=== PATIENT | female | born 1990 | race Caucasian/White ===

== ENCOUNTER 2017-05-13 07:51 | Day surgery (SDC) | payer OTHER ==
[~2017-05-13] VITALS: Ht 154.9 cm; Wt 90.5 kg
[~2017-05-13 07:51] MED LIST: CORTISONE; HYDACE5 PO; IBUP400 PO; LANACANE; MULVITMINE PO; ORTHO-CYCLEN 21 EACH; PREPARATION H
== END 2017-05-13 11:40 | disposition home or self-care (01) ==
LOC: ORSCSDS 07:51
PROVIDERS: Obstetrics & Gynecology
PROC: 0UBC7ZX Excision of Cervix, Via Natural or Artificial Opening, Diagnostic (ICD-10-PCS; principal; 2017-05-13 09:30)
DX: D06.9 Carcinoma in situ of cervix, unspecified (principal)
CPT/HCPCS: 88307; J0171; J1100; J1580; J1885; J2250; J2405; J3010; J7120

== ENCOUNTER → 2018-06-21 | Outpatient (CLI) | payer OTHER ==
[2018-06-25 04:11] LABS: CHLAMYDIA TRACHOMATIS, NAA Negative (Negative); HPV 16 Negative (Negative); HPV 18 Negative (Negative); HPV OTHER HR TYPES Negative (Negative); NEISSERIA GONORRHOEAE, NAA Negative (Negative)
== END | disposition home or self-care (01) ==
LOC: LAB 15:30 → LAB SHORT 15:30
PROVIDERS: Obstetrics & Gynecology
DX: Z36.89 Encounter for other specified antenatal screening (principal)
CPT/HCPCS: 87491; 87591; 87624; G0123

== ENCOUNTER → 2018-12-21 | Outpatient (CLI) | payer OTHER ==
[~2018-12-21] MED LIST changes: +IBUP600 PO; +PRENATAL TABLE1 EAC2 PO; +Percocet 5-3251 EACH PO
[2018-12-21 15:46] LABS: Bilirubin, Urine Neg (Neg); Blood, Urine Neg (Neg); Glucose Qualitative, Urine Neg (Neg); Ketones, Urine 1+ (Neg); Leukocyte Esterase, Urine 1+ (Neg); Nitrite, Urine Pos (Neg); Protein, Urine Neg (Neg); Urobilinogen, Urine NORM (Normal)
[2018-12-21 16:07] LABS: Appearance, Urine Clear (Clear); Color, Urine Yellow (P-Yellow)
[2018-12-21 16:18] LABS: Red Blood Cells, Urine 0-2 /hpf (0-2); Squamous Epithelial Cells Few /hpf (Few)
[2018-12-21 16:19] LABS: Bacteria Few /hpf; Calcium Oxalate Crystals Many /hpf
== END ==
LOC: LAB 15:17 → LAB SHORT 15:17
PROVIDERS: Obstetrics & Gynecology
DX: O99.89 Other specified diseases and conditions complicating pregnancy, childbirth and the puerperium (principal); R82.998 Other abnormal findings in urine
CPT/HCPCS: 81001; 87081; 87086; 87653

== ENCOUNTER 2019-01-12 06:01 | Inpatient (IN) | payer OTHER ==
[2019-01-11 09:27] LABS: BASOPHILS ABSOLUTE AUTO 0.04 K/mm3 (0.00-0.23); BASOPHILS PERCENT AUTO 1 % (0-2); EOSINOPHILS ABSOLUTE AUTO 0.06 K/mm3 (0.00-0.68); EOSINOPHILS PERCENT AUTO 1 % (0-6); Hematocrit 37.4 % (33.0-51.0); Hemoglobin 12.2 g/dL (11.5-16.0); IMMATURE GRAN ABSOLUTE AUTO 0.04 K/mm3 (0.00-0.10); IMMATURE GRAN PERCENT AUTO 1 % (0-1); LYMPHOCYTES ABSOLUTE AUTO 1.66 K/mm3 (0.84-5.20); LYMPHOCYTES PERCENT AUTO 20 % (21-46); MONOCYTES ABSOLUTE AUTO 0.49 K/mm3 (0.16-1.47); MONOCYTES PERCENT AUTO 6 % (4-13); Mean Corpuscular HGB Conc 32.6 g/dL (31.5-36.5); Mean Corpuscular Volume 92 fL (80-100); Mean Platelet Volume 12.3 fL (9.1-12.4); NEUTROPHILS ABSOLUTE AUTO 6.21 K/mm3 (1.96-9.15); NEUTROPHILS PERCENT AUTO 73 % (41-73); Platelet Count 136 K/mm3 (150-400); RDW Coefficient Variation 15.8 % (11.7-14.2); Red Blood Cell Count 4.06 M/mm3 (3.80-5.20)
[~2019-01-12] VITALS: Ht 152.4 cm; Wt 97.5 kg
[~2019-01-12 06:01] MED LIST changes: -IBUP600 PO; -Percocet 5-3251 EACH PO
[2019-01-12 08:35] LABS: PCO2 Cord - Arterial 101 mmHg (40-50); pH Cord - Arterial 6.98 (7.28-7.35)
[2019-01-12 08:38] LABS: PCO2 Cord - Venous 81.3 mmHg (40-50); pH Umbilical Cord - Venous 7.08 (7.26-7.35)
--- NOTE | 2019-01-12 08:44 | NUR ---
01/12/19 0844 Ileana Anglin VIABLE FEMALE BORN AT 0815, ATTEMPT VAC ASSIST X3 WITH 3 POP OFFS. KATIA LEW WEIGHED 7#9 OZ, [id number]. 3/8.
[2019-01-13 05:59] LABS: Hematocrit 31.8 % (33.0-51.0); Hemoglobin 10.3 g/dL (11.5-16.0); Mean Corpuscular HGB 29.5 pg (26.0-34.0); Mean Corpuscular HGB Conc 32.4 g/dL (31.5-36.5); Mean Corpuscular Volume 91 fL (80-100); Mean Platelet Volume 12.4 fL (9.1-12.4); Platelet Count 142 K/mm3 (150-400); RDW Coefficient Variation 16.2 % (11.7-14.2); RDW Standard Deviation 53.4 fL (35.1-46.3); Red Blood Cell Count 3.49 M/mm3 (3.80-5.20); White Blood Cell Count 11.34 K/mm3 (4.00-11.30)
--- NOTE | 2019-01-13 13:27 | NUR ---
CONSULT. SHE HAS BEEN ABLE TO SELF LATCH BABY ON LEFT SIDE, BUT NOT RIGHT, USING SHIELD ON RIGHT. RIGHT NIPPLE EDEMATOUS, FIRM FROM NIPPLE TO HALF OF [place]. UNABLE TO EXPRESS DROP OF COLOSTRUM. BABY SUCKING VIGOROUSLY ON PACIFIER, ROOTS, BUT GETS ANGRY AND DOES NOT WANT TO DIRECT LATCH OR USE SHIELD. FINALLY BEGAN SUCKLING ON SHIELD AFTER ABOUT 5 MINUTES OF FUSSING. INSTERMITTENT GOOD SUCKLING. NO FLUID NOTED INSIDE SHIELD WHEN SHE RELEASED. INSTRUCT IN CHANGES TO EXPECT WITH BABY AND WITH FEEDINGS DURING THE FIRST WEEK, THAT SOME PUMPING MAY HELP WITH RIGHT NIPPLE AND STIMULATION TO HELP RELEASE MILK EASIER, AND TO PUT BABY TO BREAST OFTEN AND LIMIT PACIFIER USE TO MINIMAL UNTIL BABY IS ABLE TO LATCH AND SUCKLE WELL. QUESTIONS ANSWERED.
--- NOTE | 2019-01-13 19:22 | NUR ---
REPORT TO RUDI PEPE
--- NOTE | 2019-01-13 22:10 | NUR ---
REPORT TO RUDI JENSEN
[2019-01-14] MEDS ORDERED: Percocet 5-3251 EACH PO (11:06)
[2019-01-14] MEDS ORDERED: IBUP600 PO (11:06)
== END 2019-01-14 12:50 | disposition home or self-care (01) | DRG 785 ==
LOC: BC 06:01
PROVIDERS: Obstetrics & Gynecology; ADMIT Obstetrics & Gynecology
PROC: 10D00Z1 Extraction of Products of Conception, Low, Open Approach (ICD-10-PCS; principal; 2019-01-12 07:30)
PROC: 0UT70ZZ Resection of Bilateral Fallopian Tubes, Open Approach (ICD-10-PCS; 2019-01-12 07:30)
DX: O34.211 Maternal care for low transverse scar from previous cesarean delivery (principal); Z3A.38 38 weeks gestation of pregnancy; Z37.0 Single live birth; O99.62 Diseases of the digestive system complicating childbirth; K21.9 Gastro-esophageal reflux disease without esophagitis; O24.429 Gestational diabetes mellitus in childbirth, unspecified control; O99.214 Obesity complicating childbirth; E66.01 Morbid (severe) obesity due to excess calories
CPT/HCPCS: 36415; 82803; 82947; 85025; 85027; 86850; 86900; 86901; 88302; J1885; J2370; J2405; J2590; J2765; J3010; J7120

== ENCOUNTER 2020-02-09 07:20 | Day surgery (SDC) | payer OTHER ==
[~2020-02-09] VITALS: Ht 154.9 cm; Wt 95.5 kg
[~2020-02-09 07:20] MED LIST changes: +IBUP600 PO; +Percocet 5-3251 EACH PO
[2020-02-09] MEDS ORDERED: METO50ER PO (07:55)
--- NOTE | 2020-02-09 08:45 | NUR ---
Ambulatory in Day Surgery History, Chart, Medications and Allergies reviewed before start of procedure. Lungs clear T/O to Auscultation. Patient confirms NPO status and agrees with scheduled surgery. Pre-Op teaching done. Pt verbalizes understanding. Patient States Post-Procedure ride home has been arranged.
--- NOTE | 2020-02-09 13:24 | NUR ---
PT ARRIVED TO THE ROOM FROM PACU AT APPROXIMATELY 1300. PT IS DROWSY BUT ORIENTED. LAP SITES X3 C/D/I. PT COMPLAINED OF MILD NAUSEA. PAIN 5/10 PT REPORTS PAIN IS TOLERABLE.
--- NOTE | 2020-02-09 15:59 | NUR ---
DISCHARGE: PACKET PRINTED AND PT EDUCATED. IV'S DC'D. PT GIVEN PAIN MEDS PRIOR TO SURGERY. LEFT UNIT VIA WHEELCHAIR AT ABOUT 1600
--- NOTE | 2020-02-09 17:21 | NUR ---
REPORT RECIEVED, PT TO ROOM AT ABOUT 1300. UPON ASSESSMENT PT IS A/O, VSS. SURGICAL SITES WNL. PT DENIES N/V, PAIN. PT ABLE TO AMBULATE TO BATHROOM AND VOID. TAKING PO. WILL CTM
== END 2020-02-09 15:50 | disposition home or self-care (01) ==
LOC: ORSCMMR 07:20 → ORD 07:30 → ORSCMMR 09:00 → SURS 13:11 → ORSCMMR 15:50
PROVIDERS: Obstetrics & Gynecology
PROC: 8E0W3CZ Robotic Assisted Procedure of Trunk Region, Percutaneous Approach (ICD-10-PCS; principal; 2020-02-09 09:00)
PROC: 0UT94ZZ Resection of Uterus, Percutaneous Endoscopic Approach (ICD-10-PCS; principal; 2020-02-09 09:00)
DX: N92.0 Excessive and frequent menstruation with regular cycle (principal); N80.3 Endometriosis of pelvic peritoneum; N73.6 Female pelvic peritoneal adhesions (postinfective); I10 Essential (primary) hypertension; E66.01 Morbid (severe) obesity due to excess calories; Z68.39 Body mass index [BMI] 39.0-39.9, adult; Z79.899 Other long term (current) drug therapy
CPT/HCPCS: 58570; S2900; 88307; J1100; J1580; J1885; J2250; J2405; J2704; J3010; J7120

== ENCOUNTER → 2021-09-25 | Outpatient (CLI) | payer OTHER ==
[~2021-09-25] MED LIST changes: +METO50ER PO
[2021-09-25 11:20] LABS: BASOPHILS ABSOLUTE AUTO 0.02 K/mm3 (0.00-0.23); BASOPHILS PERCENT AUTO 0 % (0-2); EOSINOPHILS PERCENT AUTO 0 % (0-6); Hematocrit 40.7 % (33.0-51.0); Hemoglobin 13.9 g/dL (11.5-16.0); IMMATURE GRAN ABSOLUTE AUTO 0.02 K/mm3 (0.00-0.10); IMMATURE GRAN PERCENT AUTO 0 % (0-1); LYMPHOCYTES ABSOLUTE AUTO 3.06 K/mm3 (0.84-5.20); LYMPHOCYTES PERCENT AUTO 29 % (21-46); MONOCYTES ABSOLUTE AUTO 0.53 K/mm3 (0.16-1.47); MONOCYTES PERCENT AUTO 5 % (4-13); Mean Corpuscular HGB 30.4 pg (26.0-34.0); Mean Corpuscular HGB Conc 34.2 g/dL (31.5-36.5); Mean Corpuscular Volume 89 fL (80-100); Mean Platelet Volume 11.3 fL (9.1-12.4); NEUTROPHILS ABSOLUTE AUTO 6.97 K/mm3 (1.96-9.15); NEUTROPHILS PERCENT AUTO 66 % (41-73); Platelet Count 256 K/mm3 (150-400); RDW Coefficient Variation 13.1 % (11.7-14.2); RDW Standard Deviation 42.2 fL (35.1-46.3); Red Blood Cell Count 4.57 M/mm3 (3.80-5.20)
[2021-09-25 11:49] LABS: Bun/Creatinine Ratio 14.1 (12.0-20.0); Calcium, Blood 8.7 mg/dL (8.5-10.1); Creatinine, Blood 0.71 mg/dL (0.40-1.00); Potassium, Blood 4.4 mmol/L (3.5-5.5); Thyroid Stimulating Hormone 1.709 uIU/mL (0.360-4.800)
== END | disposition home or self-care (01) ==
LOC: LAB SHORT 11:01 → LAB 11:01
PROVIDERS: Internal Medicine
DX: L50.1 Idiopathic urticaria (principal)
CPT/HCPCS: 80048; 84443; 85025

== ENCOUNTER 2025-01-27 21:34 | Emergency (ER) | payer OTHER ==
[~2025-01-27] VITALS: Ht 160 cm; Wt 63.5 kg
[2025-01-27 22:05] LABS: BASOPHILS ABSOLUTE AUTO 0.08 K/mm3 (0.00-0.23); BASOPHILS PERCENT AUTO 1 % (0-2); EOSINOPHILS ABSOLUTE AUTO 0.07 K/mm3 (0.00-0.68); EOSINOPHILS PERCENT AUTO 1 % (0-6); Hematocrit 42.8 % (33.0-51.0); Hemoglobin 15.4 g/dL (11.5-16.0); IMMATURE GRAN ABSOLUTE AUTO 0.02 K/mm3 (0.00-0.10); IMMATURE GRAN PERCENT AUTO 0 % (0-1); LYMPHOCYTES ABSOLUTE AUTO 2.49 K/mm3 (0.84-5.20); LYMPHOCYTES PERCENT AUTO 25 % (21-46); MONOCYTES ABSOLUTE AUTO 0.57 K/mm3 (0.16-1.47); MONOCYTES PERCENT AUTO 6 % (4-13); Mean Corpuscular HGB Conc 36.0 g/dL (31.5-36.5); Mean Corpuscular Volume 88 fL (80-100); NEUTROPHILS ABSOLUTE AUTO 6.71 K/mm3 (1.96-9.15); NEUTROPHILS PERCENT AUTO 68 % (41-73); NRBC ABSOLUTE 0.00 K/mm3 (0.00-0.02); NRBC Auto 0.0 /100 WBC (0.0-0.2); Platelet Count 219 K/mm3 (150-400); RDW Coefficient Variation 12.5 % (11.7-14.2); RDW Standard Deviation 39.8 fL (35.1-46.3)
[2025-01-27 22:23] LABS: Alanine Aminotransfer (ALT/SGP 17.0 U/L (12-78); Albumin, Blood 4.4 g/dL (3.4-5.0); Albumin/Globulin Ratio 1.5 (0.8-1.8); Anion Gap 9.0 mmol/L (3-11); Aspartate Aminotrans (AST/SGOT 15.0 U/L (12-37); Bilirubin, Total 0.7 mg/dL (0.1-1.0); Blood Urea Nitrogen 13.0 mg/dL (8-24); CO2, Blood 24.0 mmol/L (21-32); Calcium, Blood 8.9 mg/dL (8.5-10.1); Chloride, Blood 108.0 mmol/L (98-108); Creatinine, Blood 0.7 mg/dL (0.40-1.00); Globulin, Blood 3.0 g/dL (2.2-4.0); Glucose, Blood 89.0 mg/dL (70-99); Potassium, Blood 3.7 mmol/L (3.5-5.5); Sodium, Blood 137.0 mmol/L (136-145); Total Protein, Blood 7.4 g/dL (6.4-8.2)
[2025-01-27 23:00] VITALS: BP 124/93
[2025-01-27] MEDS ORDERED: Ketorolac Tromethamine 15mg Vial IV ONE (23:25)
== END 2025-01-27 23:46 | disposition home or self-care (01) ==
LOC: ER 21:34
PROVIDERS: Student in an Organized Health Care Education/Training Program
DX: S20.219A Contusion of unspecified front wall of thorax, initial encounter (principal); S80.02XA Contusion of left knee, initial encounter; V49.9XXA Car occupant (driver) (passenger) injured in unspecified traffic accident, initial encounter; Z88.0 Allergy status to penicillin; Z79.899 Other long term (current) drug therapy
CPT/HCPCS: 71046; 73562-LT; 80053; 85025; 93005; 93010; 96374; 99284-25; J1885